=== PATIENT | male | born 1980 | race African-American/Black ===

== ENCOUNTER 2016-12-17 04:41 | Inpatient (IN) | payer OTHER ==
[~2016-12-17] VITALS: Ht 193 cm; Wt 82.2 kg
[~2016-12-17 04:41] MED LIST: AMLODIPINE BESYL5 MG PO; HYDROCHLOROTHIA25 MG PO; IBUPROFEN800 MG PO; MOTRIN800 MG PO
[2016-12-17 05:36] LABS: CHLORIDE 82 mEq/L (99-109); POTASSIUM 4.9 mEq/L (3.7-5.4)
[2016-12-17 05:38] LABS: GLUCOSE 121 mg/dL (70-99)
[2016-12-17 05:39] LABS: ANION GAP 13 MEQ/L (2-14)
[2016-12-17 05:40] LABS: TOTAL BILIRUBIN 1.1 mg/dL (0.0-1.0)
[2016-12-17 05:41] LABS: ALKALINE PHOSPHATASE 114 IU/L (3-129)
[2016-12-17 05:42] LABS: GFR ESTIMATE (CALCULATED) > 59 mL/min/
[2016-12-17 05:43] LABS: UREA NITROGEN (BUN) 33 mg/dL (9-23)
[2016-12-17 05:45] LABS: LIPASE 9 U/L (1.0-51.0)
[2016-12-17 05:51] LABS: SODIUM 118 mEq/L (136-147)
[2016-12-17 07:06] LABS: EOSINOPHIL (%) 0 % (0-5); HEMATOCRIT 31.9 % (38.0-50.0); IMMATURE GRANULOCYTE (%) 1.3 % (0.0-0.7); IMMATURE GRANULOCYTE COUNT 0.2 K/uL; INSTRUMENT ABS NEUTROPHIL CT 9.7 K/uL; MCH 26.1 PG (29.0-34.0); MCHC 33.9 G/DL (30.0-36.0); MCV 77.1 FL (86-99); MONOCYTE (%) 11.4 % (3-12); MONOCYTE COUNT 1.4 K/uL (0-0.8); NEUTROPHIL COUNT 9.7 K/uL (1.8-6.4); PLATELET COUNT 343 K/uL (156-360); RBC DIS.WIDTH-CV 14.7 % (11.8-14.6); RBC DIS.WIDTH-SD 40.9 % (39-53); RED BLOOD COUNT 4.14 M/uL (4.00-5.50); WHITE BLOOD COUNT 12.3 K/uL (4.1-10.2)
[2016-12-17 10:04] VITALS: BP 139/89
[2016-12-18 08:35] VITALS: BP 130/84
[2016-12-18 10:51] LABS: HEMATOCRIT 28.6 % (38.0-50.0); MCH 27.5 PG (29.0-34.0); MCHC 34.3 G/DL (30.0-36.0); MCV 80.3 FL (86-99); MEAN PLAT.VOLUME 8.7 uM^3 (9.0-12.4); NRBC (%) 0.1 /100 WBC (0-0); PLATELET COUNT 279 K/uL (156-360); RBC DIS.WIDTH-CV 15.1 % (11.8-14.6); RBC DIS.WIDTH-SD 42.7 % (39-53); RED BLOOD COUNT 3.56 M/uL (4.00-5.50); WHITE BLOOD COUNT 24.7 K/uL (4.1-10.2)
[2016-12-18 11:18] LABS: CHLORIDE 88 MEQ/L (99-109); GFR ESTIMATE (CALCULATED) > 59 mL/min/; GLUCOSE 158 mg/dL (70-99); POTASSIUM 4.9 MEQ/L (3.7-5.4); SAMPLE HEMOLYSIS CHECK 0; SAMPLE ICTERIC CHECK 0; SAMPLE LIPEMIA CHECK 0; SODIUM 121 MEQ/L (136-147); UREA NITROGEN (BUN) 40 mg/dL (9-23)
[2016-12-18 11:19] LABS: ANION GAP 11 MEQ/L (2-14)
[2016-12-18 23:40] VITALS: BP 110/76
[2016-12-19 07:45] VITALS: BP 132/74
[2016-12-19 15:45] VITALS: BP 131/73
[2016-12-19 18:11] VITALS: BP 133/76
[2016-12-20 00:06] VITALS: BP 131/83
[2016-12-20 07:19] VITALS: BP 138/77
[2016-12-20 07:39] VITALS: BP 148/70
[2016-12-20 16:00] VITALS: BP 132/81
[2016-12-20 19:15] VITALS: BP 125/77
[2016-12-21 03:51] VITALS: BP 131/75
[2016-12-21 07:30] VITALS: BP 119/64
[2016-12-21 10:00] VITALS: BP 126/68
== END 2016-12-21 11:20 | DRG 641 ==
LOC: EME 04:41 → 5EAST 08:04 → EDOF 08:04 → ENRESERV 08:09 → 5EAST 09:40
PROVIDERS: Emergency Medicine; Internal Medicine
DX: E87.1 Hypo-osmolality and hyponatremia (principal); C76.2 Malignant neoplasm of abdomen; K31.1 Adult hypertrophic pyloric stenosis; G89.3 Neoplasm related pain (acute) (chronic); E63.9 Nutritional deficiency, unspecified; C78.7 Secondary malignant neoplasm of liver and intrahepatic bile duct; C78.89 Secondary malignant neoplasm of other digestive organs; D63.8 Anemia in other chronic diseases classified elsewhere; M62.50 Muscle wasting and atrophy, not elsewhere classified, unspecified site; K59.00 Constipation, unspecified; Z66 Do not resuscitate; Z51.5 Encounter for palliative care; S31.30XA Unspecified open wound of scrotum and testes, initial encounter; S31.20XA Unspecified open wound of penis, initial encounter; Z83.3 Family history of diabetes mellitus; Z92.21 Personal history of antineoplastic chemotherapy
CPT/HCPCS: 71010; 74177; 80048; 80053; 83690; 83930; 83935; 84300; 85025; 85027; 87040; 90686; 94640; 94760; 94799; 99281; 99285; J1170; J1650; J1940; J2060; J2405; J3010; J7030; J7042; S0028

== ENCOUNTER 2016-12-21 11:18 | Inpatient (IN) | payer OTHER ==
[2016-12-21 16:01] VITALS: BP 00/00
== END 2016-12-21 20:00 | DRG 948 ==
LOC: 5EAST 11:18
DX: G89.3 Neoplasm related pain (acute) (chronic) (principal); R45.1 Restlessness and agitation; R06.03 Acute respiratory distress; Z51.5 Encounter for palliative care; Z66 Do not resuscitate; C76.2 Malignant neoplasm of abdomen; C78.7 Secondary malignant neoplasm of liver and intrahepatic bile duct; C78.89 Secondary malignant neoplasm of other digestive organs; I10 Essential (primary) hypertension; K31.1 Adult hypertrophic pyloric stenosis; E87.1 Hypo-osmolality and hyponatremia; D63.8 Anemia in other chronic diseases classified elsewhere
CPT/HCPCS: J2060; J2270